=== PATIENT | female | born 1960 | race Caucasian/White ===

== ENCOUNTER → 2018-11-02 | Outpatient (CLI) | payer OTHER ==
--- NOTE | 2018-11-06 10:04 | MM ---
Reason for exam: screening (asymptomatic). Last mammogram was performed 1 year and 2 months ago. History: Patient is postmenopausal and has history of other cancer at age 39. Breast lifts, 2014. Physical Findings: A clinical breast exam by your physician is recommended on an annual basis and results should be correlated with mammographic findings. MG Screening Mammo w CAD Bilateral CC and MLO view(s) were taken. Prior study comparison: August 24, 2017, mammogram, performed at [facility]. July 08, 2016, mammogram, performed at [facility]. July 03, 2015, bilateral MG screening mammo w CAD. January 17, 2014, bilateral MG screening mammo w CAD. No suspicious abnormality. No significant changes when compared with prior studies. ASSESSMENT: Negative, BI-RAD 1 RECOMMENDATION: Routine screening mammogram of both breasts in 1 year.
== END ==
LOC: RADMAMWWP 13:06
PROVIDERS: ATTEND Family Medicine
DX: Z12.31 Encounter for screening mammogram for malignant neoplasm of breast (principal)
CPT/HCPCS: 77067

== ENCOUNTER → 2020-07-10 | Outpatient (CLI) | payer OTHER ==
[2020-07-10 08:54] LABS: Basophils % (A) 1 %; Eosinophils # (A) 0.1 k/uL (0-0.7); Eosinophils % (A) 3 %; HCT 40.8 % (34.0-46.0); HGB 13.5 gm/dL (11.4-16.0); Lymphocytes # (A) 0.9 k/uL (1.0-4.8); Lymphocytes % (A) 26 %; MCH 31.3 pg (25.0-35.0); MCHC 33.1 g/dL (31.0-37.0); MCV 94.7 fL (80.0-100.0); Mean Platelet Volume 7.7; Monocytes # (A) 0.3 k/uL (0-1.0); Monocytes % (A) 8 %; Neutrophils % (A) 61 %; Platelet Count 242 k/uL (150-450); RBC 4.31 m/uL (3.80-5.40); RDW 12.7 % (11.5-15.5); WBC 3.3 k/uL (3.8-10.6)
[2020-07-10 08:55] LABS: Appearance,Urine Clear (Clear); Bilirubin,Urine Negative (Negative); Blood,Urine Negative (Negative); Color,Urine Yellow; Glucose,Urine (UA) Negative (Negative); Ketones,Urine Negative (Negative); Leukocyte Esterase,Urine Negative (Negative); Nitrite,Urine Negative (Negative); PH, Urine 7.5 (5.0-8.0); Protein,Urine Negative (Negative); Specific Gravity,Urine 1.014 (1.001-1.035); Urobilinogen,Urine <2.0 mg/dL (<2.0)
[2020-07-10 12:21] LABS: Erythrocyte Sedimentation Rate 11 mm/hr (0-20)
[2020-07-10 16:14] LABS: Hemoglobin A1C 5.6 % (4.0-6.0)
[2020-07-10 18:46] LABS: African American GFR (CKD) 109.1 (60.0-200.0); Albumin 4.2 g/dL (3.80-4.90); Anion Gap 7.6 mmol/L (4.00-12.00); BUN/Creat Ratio 24.29 Ratio (12.00-20.00); C Reactive Protein, High Sens 1.22 mg/L (0.000-3.000); Calcium 9.5 mg/dL (8.7-10.3); Carbon Dioxide 28.4 mmol/L (21.6-31.8); Chol/HDL Ratio 2.22; Globulin 2.1 g/dL (1.6-3.3); LDL Cholesterol,Calculated 105.6 mg/dL (0.0-131.0); Non-African American GFR(CKD) 94.2 (60.0-200.0); Potassium 4.2 mmol/L (3.5-5.5); Total Bilirubin 0.4 mg/dL (0.2-1.2); Total Protein 6.3 g/dL (6.2-8.2); VLDL Calculation 11.4 mg/dL (5.00-40.00)
== END | disposition home or self-care (01) ==
LOC: LABWHC1 08:13
PROVIDERS: ATTEND Family Medicine
DX: E78.2 Mixed hyperlipidemia (principal); E53.8 Deficiency of other specified B group vitamins; E55.9 Vitamin D deficiency, unspecified; Z13.228 Encounter for screening for other metabolic disorders; Z82.49 Family history of ischemic heart disease and other diseases of the circulatory system
CPT/HCPCS: 36415; 80053; 80061; 81003; 82306; 82550; 82607; 83036; 83090; 84443; 85025; 85652; 86141

== ENCOUNTER → 2020-09-04 | Outpatient (CLI) | payer OTHER ==
--- NOTE | 2020-09-08 13:32 | MM ---
Reason for exam: screening (asymptomatic). Last mammogram was performed 1 year and 10 months ago. History: Patient is postmenopausal and has history of other cancer at age 39. Breast lifts, 2014. Physical Findings: A clinical breast exam by your physician is recommended on an annual basis and results should be correlated with mammographic findings. MG Screening Mammo w CAD Bilateral CC and MLO view(s) were taken. Prior study comparison: November 02, 2018, bilateral MG screening mammo w CAD. August 24, 2017, mammogram, performed at [facility]. The breast tissue is heterogeneously dense. This may lower the sensitivity of mammography. Dense tissues are present anteriorly on a background of scattered densities. No significant changes when compared with prior studies. ASSESSMENT: Negative, BI-RAD 1 RECOMMENDATION: Routine screening mammogram of both breasts in 1 year.
== END | disposition home or self-care (01) ==
LOC: RADMAMWWP 11:08
PROVIDERS: ATTEND Family Medicine
DX: Z12.31 Encounter for screening mammogram for malignant neoplasm of breast (principal)
CPT/HCPCS: 77067

== ENCOUNTER 2021-02-21 00:19 | Emergency (ER) | payer OTHER ==
[2021-02-21 00:32] VITALS: RESP 18
[2021-02-21] MEDS ORDERED: SODIUM CHLORIDE 0.9% 1,000 ML IV STA (00:43)
[2021-02-21 01:00] LABS: Glucose,Whole Blood 113 mg/dL (75-99)
[2021-02-21 01:06] LABS: Appearance,Urine Clear (Clear); Basophils % (A) 1 %; Bilirubin,Urine Negative (Negative); Blood,Urine Negative (Negative); Color,Urine Colorless; Eosinophils # (A) 0.1 k/uL (0-0.7); Eosinophils % (A) 2 %; Glucose,Urine (UA) Negative (Negative); HCT 39.8 % (34.0-46.0); HGB 13.4 gm/dL (11.4-16.0); Ketones,Urine Negative (Negative); Leukocyte Esterase,Urine Negative (Negative); Lymphocytes # (A) 1.3 k/uL (1.0-4.8); Lymphocytes % (A) 22 %; MCH 32.3 pg (25.0-35.0); MCHC 33.7 g/dL (31.0-37.0); MCV 95.6 fL (80.0-100.0); Mean Platelet Volume 8.2; Monocytes # (A) 0.3 k/uL (0-1.0); Monocytes % (A) 6 %; Neutrophils # (A) 4.1 k/uL (1.3-7.7); Neutrophils % (A) 68 %; Nitrite,Urine Negative (Negative); Platelet Count 235 k/uL (150-450); Protein,Urine Negative (Negative); RBC 4.17 m/uL (3.80-5.40); RDW 12.9 % (11.5-15.5); Specific Gravity,Urine 1.006 (1.001-1.035); Urobilinogen,Urine <2.0 mg/dL (<2.0)
[2021-02-21 01:15] LABS: ALT 19 U/L (4-34); AST 27 U/L (14-36); African American GFR (CKD) >90 (>60 ml/min/1.73 sqM); Albumin 4.3 g/dL (3.5-5.0); Alkaline Phosphatase 104 U/L (38-126); Anion Gap 5 mmol/L; Blood Urea Nitrogen 17 mg/dL (7-17); Calcium 9.2 mg/dL (8.4-10.2); Carbon Dioxide 26 mmol/L (22-30); Chloride 106 mmol/L (98-107); Glucose 112 mg/dL (74-99); INR 0.9 (<1.2); Non-African American GFR(CKD) >90 (>60 ml/min/1.73 sqM); Partial Thromboplastin Time 23.4 sec (22.0-30.0); Potassium 3.9 mmol/L (3.5-5.1); Prothrombin Time 9.8 sec (9.0-12.0); Sodium 137 mmol/L (137-145); Total Bilirubin 0.2 mg/dL (0.2-1.3); Total Protein 6.7 g/dL (6.3-8.2)
--- NOTE | 2021-02-21 01:31 | XR ---
EXAMINATION TYPE: XR chest 2V DATE OF EXAM: 02/21/2021 COMPARISON: NONE HISTORY: Chest pain TECHNIQUE: 2 views FINDINGS: Heart and mediastinum are normal. Lungs are clear. Diaphragm is normal. Bony thorax is inta ct. IMPRESSION: Normal chest.
--- NOTE | 2021-02-21 01:37 | ED ---
General Adult HPI - General Chief complaint: Nausea/Vomiting/Diarrhea Stated complaint: Heart pounding, nausea, shaky Time Seen by Provider: 02/21/21 00:39 Source: patient, RN notes reviewed Mode of arrival: ambulatory Limitations: no limitations - History of Present Illness Initial comments: Patient is a 60-year-old female that presents to the emergency department complaining of not feeling well after being out in the sun all day. She notes that she got up early did yardwork with her drink minimal water. She noted that she then met up with her daughter for lunch and of fair where she drank 1-2 bottles of water and several sprites. She notes that she was not feeling well while being on the sun drank some fluids and felt better at the time. She notes that when she got home she had several bottles of water and still did not feel well. This is when she came into the emergency room to get evaluated. She notes that she does have a history of hypoglycemia. She denied any cardiac history. She notes that she felt like her heart was pounding really hard during the time that she was not feeling well while outside in the sun. She was otherwise a well-appearing 60-year-old female in no apparent distress or pain. She denied any shortness of breath headache nausea vomiting diarrhea constipation fever fatigue chills. - Related Data Allergies Allergy/AdvReac Type Severity Reaction Status Date / Time codeine Allergy Vomiting Verified 02/21/21 00:32 meperidine [From Demerol] Allergy Rash/Hives Verified 02/21/21 00:32 prochlorperazine Allergy Unknown Verified 02/21/21 00:32 [From Compazine] Review of Systems ROS Statement: Those systems with pertinent positive or pertinent negative responses have been documented in the HPI. ROS Other: All systems not noted in ROS Statement are negative. Past Medical History Past Medical History: Hyperlipidemia History of Any Multi-Drug Resistant Organisms: None Reported Past Surgical History: No Surgical Hx Reported Past Psychological History: No Psychological Hx Reported Smoking Status: Never smoker Past Alcohol Use History: Occasional Past Drug Use History: None Reported General Exam Limitations: no limitations General appearance: alert, in no apparent distress Head exam: Present: atraumatic, normocephalic, normal inspection Eye exam: Present: normal appearance, PERRL, EOMI. Absent: scleral icterus, conjunctival injection, periorbital swelling ENT exam: Present: normal exam, mucous membranes moist Neck exam: Present: normal inspection Respiratory exam: Present: normal lung sounds bilaterally. Absent: respiratory distress, wheezes, rales, rhonchi, stridor Cardiovascular Exam: Present: regular rate, normal rhythm, normal heart sounds. Absent: systolic murmur, diastolic murmur, rubs, gallop, clicks GI/Abdominal exam: Present: soft, normal bowel sounds. Absent: distended, tenderness, guarding, rebound, rigid Extremities exam: Present: normal inspection, full ROM, normal capillary refill. Absent: tenderness, pedal edema, joint swelling, calf tenderness Neurological exam: Present: alert, oriented X3 Psychiatric exam: Present: normal affect, normal mood Skin exam: Present: warm, dry, intact, normal color. Absent: rash Course Vital Signs 02/21/21 00:30 Temperature 98.5 F Pulse Rate 82 Respiratory 18 Rate Blood Pressure 157/59 O2 Sat by Pulse 99 Oximetry EKG Findings - EKG Comments: EKG Findings:: Ventricular rate 65 bpm, MN interval 170 ms, QRS duration 84 ms, QTC 428 ms, PRT axes 46/-44/52. Normal sinus rhythm, left axis deviation, anterior septal infarct age undetermined. Abnormal ECG. Medical Decision Making - Medical Decision Making 60-year-old female stating that she did not feel well all the sun today and that at home later that evening. Labs, EKG, nurse monitoring, 1 L normal saline, chest x-ray ordered. Labs unremarkable. Chest x-ray negative for any acute process. Given labs and negative imaging in normal EKG patient most likely has he is also shows dehydration. Case discussed with Dr. Armenta, patient can discharge home with follow-up primary care - Lab Data Result diagrams: 02/21/21 00:57 02/21/21 00:57 Lab Results 02/21/21 02/21/21 02/21/21 Range/Units 00:53 00:57 00:57 WBC 6.0 (3.8-10.6) k/uL RBC 4.17 (3.80-5.40) m/uL Hgb 13.4 (11.4-16.0) gm/dL Hct 39.8 (34.0-46.0) % MCV 95.6 (80.0-100.0) fL MCH 32.3 (25.0-35.0) pg MCHC 33.7 (31.0-37.0) g/dL RDW 12.9 (11.5-15.5) % Plt Count 235 (150-450) k/uL MPV 8.2 Neutrophils % 68 % Lymphocytes % 22 % Monocytes % 6 % Eosinophils % 2 % Basophils % 1 % Neutrophils # 4.1 (1.3-7.7) k/uL Lymphocytes # 1.3 (1.0-4.8) k/uL Monocytes # 0.3 (0-1.0) k/uL Eosinophils # 0.1 (0-0.7) k/uL Basophils # 0.0 (0-0.2) k/uL PT 9.8 (9.0-12.0) sec INR 0.9 (<1.2) APTT 23.4 (22.0-30.0) sec Sodium (137-145) mmol/L Potassium (3.5-5.1) mmol/L Chloride (98-107) mmol/L Carbon Dioxide (22-30) mmol/L Anion Gap mmol/L BUN (7-17) mg/dL Creatinine (0.52-1.04) mg/dL Est GFR (CKD-EPI)AfAm (>60 ml/min/1.73 sqM) Est GFR (CKD-EPI)NonAf (>60 ml/min/1.73 sqM) Glucose (74-99) mg/dL POC Glucose (mg/dL) 113 H (75-99) mg/dL POC Glu [employer] ID Gregory, Dona Calcium (8.4-10.2) mg/dL Magnesium (1.6-2.3) mg/dL Total Bilirubin (0.2-1.3) mg/dL AST (14-36) U/L ALT (4-34) U/L Alkaline Phosphatase (38-126) U/L Troponin I (0.000-0.034) ng/mL Total Protein (6.3-8.2) g/dL Albumin (3.5-5.0) g/dL Urine Color Urine Appearance (Clear) Urine pH (5.0-8.0) Ur Specific [place] (1.001-1.035) Urine Protein (Negative) Urine Glucose (UA) (Negative) Urine Ketones (Negative) Urine Blood (Negative) Urine Nitrite (Negative) Urine Bilirubin (Negative) Urine Urobilinogen (<2.0) mg/dL Ur Leukocyte Esterase (Negative) 02/21/21 02/21/21 02/21/21 Range/Units 00:57 00:57 00:57 WBC (3.8-10.6) k/uL RBC (3.80-5.40) m/uL Hgb (11.4-16.0) gm/dL Hct (34.0-46.0) % MCV (80.0-100.0) fL MCH (25.0-35.0) pg MCHC (31.0-37.0) g/dL RDW (11.5-15.5) % Plt Count (150-450) k/uL MPV Neutrophils % % Lymphocytes % % Monocytes % % Eosinophils % % Basophils % % Neutrophils # (1.3-7.7) k/uL Lymphocytes # (1.0-4.8) k/uL Monocytes # (0-1.0) k/uL Eosinophils # (0-0.7) k/uL Basophils # (0-0.2) k/uL PT (9.0-12.0) sec INR (<1.2) APTT (22.0-30.0) sec Sodium 137 (137-145) mmol/L Potassium 3.9 (3.5-5.1) mmol/L Chloride 106 (98-107) mmol/L Carbon Dioxide 26 (22-30) mmol/L Anion Gap 5 mmol/L BUN 17 (7-17) mg/dL Creatinine 0.61 (0.52-1.04) mg/dL Est GFR (CKD-EPI)AfAm >90 (>60 ml/min/1.73 sqM) Est GFR (CKD-EPI)NonAf >90 (>60 ml/min/1.73 sqM) Glucose 112 H (74-99) mg/dL POC Glucose (mg/dL) (75-99) mg/dL POC Glu [employer] ID Calcium 9.2 (8.4-10.2) mg/dL Magnesium 2.0 (1.6-2.3) mg/dL Total Bilirubin 0.2 (0.2-1.3) mg/dL AST 27 (14-36) U/L ALT 19 (4-34) U/L Alkaline Phosphatase 104 (38-126) U/L Troponin I <0.012 (0.000-0.034) ng/mL Total Protein 6.7 (6.3-8.2) g/dL Albumin 4.3 (3.5-5.0) g/dL Urine Color Colorless Urine Appearance Clear (Clear) Urine pH 7.0 (5.0-8.0) Ur Specific [place] 1.006 (1.001-1.035) Urine Protein Negative (Negative) Urine Glucose (UA) Negative (Negative) Urine Ketones Negative (Negative) Urine Blood Negative (Negative) Urine Nitrite Negative (Negative) Urine Bilirubin Negative (Negative) Urine Urobilinogen <2.0 (<2.0) mg/dL Ur Leukocyte Esterase Negative (Negative) - EKG Data -: EKG Interpreted by Ct EKG shows normal: sinus rhythm Rate: normal EKG Comments: Ventricular rate 65 bpm, MN interval 170 ms, QRS duration 84 ms, QTC 428 ms, PRT axes 46/-44/52. Normal sinus rhythm, left axis deviation, anterior septal infarct age undetermined. Abnormal ECG. - Radiology Data Radiology results: report reviewed, image reviewed Chest x-ray: Normal chest. Disposition Clinical Impression: Dehydration, Heat exhaustion Disposition: HOME SELF-CARE Condition: Stable Instructions (If sedation given, give patient instructions): Dehydration (ED) Additional Instructions: Please return to the Emergency Department if symptoms worsen or any other concerns. Follow-up with primary care in the next 1-2 days. Increase oral fluids, should drank approximately 1 gallon per day. Caffeine causes her to urinate increasing dehydration. Get plenty or rest. Is patient prescribed a controlled substance at d/c from ED?: No Referrals: Deepika Ag MD [Primary Care Provider] - 1-2 days Time of Disposition: 01:48
[2021-02-21 02:03] VITALS: BP 136/76; PULSE 58; TEMP 98
== END 2021-02-21 02:00 | disposition home or self-care (01) ==
LOC: EC 00:19
DX: E86.0 Dehydration (principal); T67.5XXA Heat exhaustion, unspecified, initial encounter; Z88.5 Allergy status to narcotic agent; Z88.8 Allergy status to other drugs, medicaments and biological substances
CPT/HCPCS: 36415; 71046; 80053; 81003; 83735; 84484; 85025; 85610; 85730; 93005; 96360; 99284

== ENCOUNTER → 2021-09-17 | Outpatient (CLI) | payer OTHER ==
--- NOTE | 2021-09-20 09:16 | MM ---
Reason for exam: screening (asymptomatic). Last mammogram was performed 1 year ago. History: Patient is postmenopausal and has history of other cancer at age 39. Breast lifts, 2014. Physical Findings: A clinical breast exam by your physician is recommended on an annual basis and results should be correlated with mammographic findings. MG Screening Mammo w CAD Bilateral CC and MLO view(s) were taken. Prior study comparison: September 04, 2020, bilateral MG screening mammo w CAD. November 02, 2018, bilateral MG screening mammo w CAD. There are scattered fibroglandular densities. There are benign appearing round calcifications bilaterally. There is no discrete abnormality. ASSESSMENT: Benign, BI-RAD 2 RECOMMENDATION: Routine screening mammogram of both breasts in 1 year.
== END | disposition home or self-care (01) ==
LOC: RADMAMWWP 12:54
PROVIDERS: ATTEND Family Medicine
DX: Z12.31 Encounter for screening mammogram for malignant neoplasm of breast (principal); Z78.0 Asymptomatic menopausal state
CPT/HCPCS: 77067

== ENCOUNTER 2022-08-16 09:07 | Day surgery (SDC) | payer OTHER ==
[2022-08-11 13:12] VITALS: BMI 28.1
[~2022-08-16 09:07] MED LIST: LACTATED RINGERS 1,000 ML IV SCH
[2022-08-16 09:33] VITALS: TEMP 97.6
[2022-08-16 09:46] LABS: Glucose,Whole Blood 96 mg/dL (70-110)
[2022-08-16] MEDS ORDERED: PROPOFOL 10 MG/ML 20 ML VIAL IV ONE (10:01)
--- NOTE | 2022-08-16 10:05 | P.GSHP ---
History of Present Illness H&P Date: 08/16/22 Chief Complaint: Colon cancer screening 61-year-old female here today for colonoscopy. Last colonoscopy 10-15 years ago. No bowel complaints. Family believes her mother may have had colon cancer in the past. Past Medical History Past Medical History: Cancer, Hyperlipidemia Additional Past Medical History / Comment(s): KIDNEY STONE. SKIN CANCER X 2 History of Any Multi-Drug Resistant Organisms: None Reported Past Surgical History: Hysterectomy, Orthopedic Surgery, Tubal Ligation Additional Past Surgical History / Comment(s): BILAT FOOT SX, KIDNEY STONE REMOVED , COLONOSCOPY, SKIN CANCER REMOVED FROM CHEST AREA Past Anesthesia/Blood Transfusion Reactions: Postoperative Nausea & Vomiting (PONV) Smoking Status: Never smoker - Past Family History Mother Family Medical History: No Reported History Medications and Allergies Home Medications Medication Instructions Recorded Confirmed Type Levocetirizine Dihydrochloride 5 mg PO HS 08/11/22 08/11/22 History [Xyzal] Rosuvastatin Calcium 5 mg PO MOWEFR 08/11/22 08/11/22 History Allergies Allergy/AdvReac Type Severity Reaction Status Date / Time codeine Allergy Vomiting Verified 08/11/22 13:00 meperidine [From Demerol] Allergy Rash/Hives Verified 08/11/22 13:00 prochlorperazine Allergy CONVULSIONS Verified 08/16/22 09:30 [From Compazine] Surgical - Exam Vital Signs Temp Pulse Resp BP Pulse Ox 97.6 F 71 18 159/70 98 08/16/22 09:32 08/16/22 09:32 08/16/22 09:32 08/16/22 09:32 08/16/22 09:32 Physical exam: General: Well-developed, well-nourished HEENT: Normocephalic, sclerae nonicteric Abdomen: Nontender, nondistended Extremities: No edema Neuro: Alert and oriented Assessment and Plan (1) Colon cancer screening Narrative/Plan: Will proceed with colonoscopy at this time. Current Visit: Yes Status: Acute Code(s): Z12.11 - ENCOUNTER FOR SCREENING FOR MALIGNANT NEOPLASM OF COLON SNOMED Code(s): 435290861
--- NOTE | 2022-08-16 10:20 | P.PCN ---
Date of Procedure: 08/16/22 Procedure(s) Performed: PREOPERATIVE DIAGNOSIS: Colon cancer screening POSTOPERATIVE DIAGNOSIS: Normal exam PROCEDURE: Colonoscopy ANESTHESIA: MAC SURGEON: Galen Mariano M.D. SPECIMENS: None ENDOSCOPIC PROCEDURE: The patient was placed on the endoscopy table in the left decubitus position. The Olympus colonoscope was inserted into the anus and passed under direct visualization to the base of the cecum. The appendiceal orifice was visualized. From that point the scope was slowly withdrawn inspecti ng all surfaces carefully. There were no neoplastic inflammatory or polypoid lesions throughout the cecum, ascending, transverse, descending, sigmoid and rectum. There was no visible diverticulosis noted. Digital rectal examination was normal. The patient was taken to the recovery room in stable condition per anesthesia guidelines. RECOMMENDATIONS: Resume diet. Repeat colonoscopy in 5-10 years
[2022-08-16 10:25] VITALS: RESP 16
[2022-08-16 11:04] VITALS: BP 130/75; PULSE 54
== END 2022-08-16 11:33 | disposition home or self-care (01) ==
LOC: ORWHC2ENDO 09:07
PROVIDERS: ATTEND Surgery
DX: Z12.11 Encounter for screening for malignant neoplasm of colon (principal); E78.5 Hyperlipidemia, unspecified; Z87.442 Personal history of urinary calculi; Z85.828 Personal history of other malignant neoplasm of skin; Z98.890 Other specified postprocedural states; Z79.811 Long term (current) use of aromatase inhibitors; Z79.02 Long term (current) use of antithrombotics/antiplatelets; Z88.5 Allergy status to narcotic agent; Z88.8 Allergy status to other drugs, medicaments and biological substances; Z98.51 Tubal ligation status
CPT/HCPCS: 45378; J2704

== ENCOUNTER → 2022-10-10 | Outpatient (CLI) | payer OTHER ==
--- NOTE | 2022-10-11 08:30 | MM ---
Reason for Exam: Screening (asymptomatic). Last mammogram was performed 1 year(s) and 1 month(s) ago. Patient History: Menarche at age 11. First Full-Term at age 22. Hysterectomy at age 40. Postmenopausal. Other cancer, age 39. Risk Values: [place] 5 year model risk: 1.4%. NCI Lifetime model risk: 6.0%. Prior Study Comparison: 11/02/2018 Bilateral Screening Mammogram, [facility]. 09/04/2020 Bilateral Screening Mammogram, [facility]. 09/17/2021 Bilateral Screening Mammogram, [facility]. Tissue Density: There are scattered fibroglandular densities. Findings: Analyzed By CAD. There is no suspicious group of microcalcifications or new suspicious mass in either breast. Benign-appearing round calcifications bilaterally. Overall Assessment: Benign, BI-RAD 2 Management: Screening Mammogram of both breasts in 1 year. A clinical breast exam by your physician is recommended on an annual basis and results should be correlated with mammographic findings. Electronically signed and approved by: Yannick Hadley D.O.
== END | disposition home or self-care (01) ==
LOC: RADMAMWWP 11:10
PROVIDERS: ATTEND Family Medicine
DX: Z12.31 Encounter for screening mammogram for malignant neoplasm of breast (principal); Z78.0 Asymptomatic menopausal state
CPT/HCPCS: 77067

== ENCOUNTER → 2023-07-06 | Outpatient (CLI) | payer OTHER ==
--- NOTE | 2023-07-06 16:57 | US ---
EXAMINATION TYPE: US transvaginal DATE OF EXAM: 07/06/2023 COMPARISON: NONE CLINICAL INDICATION: Female, 62 years old with history of R19.00 INTRA-ABD AND PELVIC SWELLING W/MASS ; physician felt "sac" at end of vag cuff near bladder, abnormal pap smear TECHNIQUE: Transvaginal (TV) ultrasound of the pelvis. Transvaginal sonographic images were medical ly necessary to better assess the following anatomy: Ovaries Date of LMP: 1999 (hysterectomy) EXAM MEASUREMENTS: Uterus: Surgically absent Endometrial Stripe: Surgically absent Right Ovary: Not seen apparently obscured by bowel Left Ovary: Not seen apparently obscured by bowel 1. Uterus: Surgically absent 2. Endometrium: Surgically absent 3. Right Ovary: Obscured by overlying bowel gas 4. Left Ovary: Obscured by overlying bowel gas 5. Bilateral Adnexa: Obscured by overlying bowel gas 6. Posterior cul-de-sac: wnl A 0.2x0.2x0.1cm echogenic focus noted in the region of the vaginal cuff, 0.7x0.6x0.8cm cystic area no zahraa at end of vaginal cuff, may correspond to "fingernail size sac-like area" palpated by physician Exam limited by bowel gas IMPRESSION: 1. Status post hysterectomy. 2. Small chronic focus in the region of the vaginal cuff, may represent calcification. A 0.8 cm cyst ic area at the end of the vaginal cuff, may correspond to the reported physical exam findings. 3. Ovaries/adnexa obscured by bowel gas.
== END | disposition home or self-care (01) ==
LOC: RADUSWWP 15:57
PROVIDERS: ATTEND Family Medicine
DX: N89.8 Other specified noninflammatory disorders of vagina (principal); R14.0 Abdominal distension (gaseous); Z90.710 Acquired absence of both cervix and uterus
CPT/HCPCS: 76830

== ENCOUNTER 2023-07-28 08:07 | Observation (INO) | payer OTHER ==
[2023-07-28] MEDS ORDERED: SODIUM CHLORIDE 0.9% 1,000 ML IV ONE (08:36)
--- NOTE | 2023-07-28 08:40 | ED ---
Abdominal Pain HPI - General Chief Complaint: Abdominal Pain Stated Complaint: Cdiff Time Seen by Provider: 07/28/23 08:36 Source: patient, RN notes reviewed Mode of arrival: ambulatory Limitations: no limitations - History of Present Illness Initial Comments: 62-year-old female presents emergency Department with chief complaint of diarrhea. Patient was positive for C. diff patient was on prior Cipro and Flagyl and was placed on vancomycin. Patient states that she's lost over 10 pounds. Patient states that her PCP sent her to the emergency department to be admitted for dehydration and C. diff. Patient states she was on Cipro and Flagyl secondary to colonic infection. - Related Data Home Medications Medication Instructions Recorded Confirmed Levocetirizine Dihydrochloride 5 mg PO HS 08/11/22 07/28/23 [Xyzal] Rosuvastatin Calcium 5 mg PO MOWEFR 08/11/22 07/28/23 Ondansetron Odt [Zofran Odt] 4 mg PO Q4H PRN 07/28/23 07/28/23 Vancomycin Oral Solution 250 mg PO Q6HR 07/28/23 07/28/23 [Vancomycin HCl Oral Soln] Allergies Allergy/AdvReac Type Severity Reaction Status Date / Time meperidine [From Demerol] Allergy Rash/Hives Verified 07/28/23 11:51 sulfamethoxazole Allergy Rash/Hives Verified 07/28/23 11:51 [From Bactrim] trimethoprim [From Bactrim] Allergy Rash/Hives Verified 07/28/23 11:51 codeine AdvReac Nausea & Verified 07/28/23 11:51 Vomiting prochlorperazine AdvReac CONVULSIONS Verified 07/28/23 11:51 [From Compazine] Review of Systems ROS Statement: Those systems with pertinent positive or pertinent negative responses have been documented in the HPI. ROS Other: All systems not noted in ROS Statement are negative. Past Medical History Past Medical History: Cancer, Hyperlipidemia Additional Past Medical History / Comment(s): KIDNEY STONE. SKIN CANCER X 2 History of Any Multi-Drug Resistant Organisms: None Reported Past Surgical History: Hysterectomy, Orthopedic Surgery, Tubal Ligation Additional Past Surgical History / Comment(s): BILAT FOOT SX, KIDNEY STONE REMOVED , COLONOSCOPY, SKIN CANCER REMOVED FROM CHEST AREA Past Anesthesia/Blood Transfusion Reactions: Postoperative Nausea & Vomiting (PONV) Past Psychological History: No Psychological Hx Reported Smoking Status: Never smoker - Past Family History Mother Family Medical History: No Reported History General Exam Limitations: no limitations General appearance: alert, in no apparent distress Head exam: Present: atraumatic, normocephalic, normal inspection Neck exam: Present: normal inspection, full ROM. Absent: tenderness, meningismus, lymphadenopathy Respiratory exam: Present: normal lung sounds bilaterally. Absent: respiratory distress, wheezes, rales, rhonchi, stridor Cardiovascular Exam: Present: regular rate, normal rhythm, normal heart sounds. Absent: systolic murmur, diastolic murmur, rubs, gallop, clicks GI/Abdominal exam: Present: soft, tenderness, normal bowel sounds. Absent: distended, guarding, rebound, rigid Course Vital Signs 07/28/23 07/28/23 08:32 10:46 Temperature 98.8 F 98.2 F Pulse Rate 83 65 Respiratory 16 18 Rate Blood Pressure 119/65 157/73 O2 Sat by Pulse 98 100 Oximetry Medical Decision Making - Medical Decision Making Was pt. sent in by a medical professional or institution (, PA, PARTITION ASSEMBLY MACHINE OPERATOR, urgent care, hospital, or jail...) When possible be specific @ -PCP sent Did you speak to anyone other than the patient for history (EMS, parent, family, police, friend...)? What history was obtained from this source @ -No Did you review nursing and triage notes (agree or disagree)? Why? @ -I reviewed and agree with nursing and triage notes Were old charts reviewed (outside hosp., previous admission, EMS record, old EKG, old radiological studies, urgent care reports/EKG's, jail records)? Report findings @ -No old charts were reviewed Differential Diagnosis (chest pain, altered mental status, abdominal pain women, abdominal pain men, vaginal bleeding, weakness, fever, dyspnea, syncope, headache, dizziness, GI bleed, back pain, seizure, CVA, palpatations, mental health, musculoskeletal)? @ -Differential Abdominal Pain Women: Appendicitis, Cholecystitis, diverticulosis, ischemic bowel, pancreatitis, hepatitis, UTI, gastroenteritis, AAA, incarcerated hernia, bowel obstruction, constipation, inflammatory bowel, hepatitis, peptic ulcer disease, splenic infarction, perforated viscus, vulvitis, ovarian torsion, PID, kidney stone, placenta abruption, this is not meant to be an all-inclusive list EKG interpreted by me (3pts min.). @ -None X-rays interpreted by me (1pt min.). @ -None done CT interpreted by me (1pt min.). @ -None done U/S interpreted by me (1pt. min.). @ -None done What testing was considered but not performed or refused? (CT, X-rays, U/S, labs)? Why? @ -None What meds were considered but not given or refused? Why? @ -None Did you discuss the management of the patient with other professionals (professionals i.e. , PA, PARTITION ASSEMBLY MACHINE OPERATOR, lab, RT, psych nurse, manager social media, structural metal fabricator apprentice, teacher, navigation officer, director case)? Give summary @ -Dr. Lora for admission Was smoking cessation discussed for >3mins.? @ -No Was critical care preformed (if so, how long)? @ -No Were there social determinants of health that impacted care today? How? (Homelessness, low income, unemployed, alcoholism, drug addiction, transportation, low edu. Level, literacy, decrease access to med. care, prison, rehab)? @ -No Was there de-escalation of care discussed even if they declined (Discuss DNR or withdrawal of care, Hospice)? DNR status @ -No What co-morbidities impacted this encounter? (DM, HTN, Smoking, COPD, CAD, Cancer, CVA, ARF, Chemo, Hep., AIDS, mental health diagnosis, sleep apnea, morbid obesity)? @ -None Was patient admitted / discharged? Hospital course, mention meds given and route, prescriptions, significant lab abnormalities, going to OR and other per tinent info. @ -Admitted patient presented for dehydration, C. diff. Patient has been on prior Flagyl, now vancomycin with increasing symptoms. Patient was sent in for admission and infectious disease consult Undiagnosed new problem with uncertain prognosis? @ -No Drug Therapy requiring intensive monitoring for toxicity (Heparin, Nitro, Insulin, Cardizem)? @ -No Were any procedures done? @ -No Diagnosis/symptom? @ -C. diff, dehydration Acute, or Chronic, or Acute on Chronic? @ -Acute Uncomplicated (without systemic symptoms) or Complicated (systemic symptoms)? @ -Uncomplicated Side effects of treatment? @ -No Exacerbation, Progression, or Severe Exacerbation? @ -No Poses a threat to life or bodily function? How? (Chest pain, USA, ID, pneumonia, PE, COPD, DKA, ARF, appy, cholecystitis, CVA, Diverticulitis, Homicidal, Suicidal, threat to staff... and all critical care pts) @ -No - Lab Data Result diagrams: 07/28/23 08:49 07/28/23 08:49 Lab Results 07/28/23 07/28/23 07/28/23 Range/Units 08:49 08:49 08:49 WBC 7.4 (3.8-10.6) k/uL RBC 4.52 (3.80-5.40) m/uL Hgb 14.3 (11.4-16.0) gm/dL Hct 41.9 (34.0-46.0) % MCV 92.6 (80.0-100.0) fL MCH 31.6 (25.0-35.0) pg MCHC 34.2 (31.0-37.0) g/dL RDW 12.8 (11.5-15.5) % Plt Count 239 (150-450) k/uL MPV 9.5 Neutrophils % 81 % Lymphocytes % 9 % Monocytes % 8 % Eosinophils % 0 % Basophils % 0 % Neutrophils # 6.0 (1.3-7.7) k/uL Lymphocytes # 0.6 L (1.0-4.8) k/uL Monocytes # 0.6 (0-1.0) k/uL Eosinophils # 0.0 (0-0.7) k/uL Basophils # 0.0 (0-0.2) k/uL Sodium 139 (137-145) mmol/L Potassium 3.4 L (3.5-5.1) mmol/L Chloride 103 (98-107) mmol/L Carbon Dioxide 24 (22-30) mmol/L Anion Gap 12 mmol/L BUN 11 (7-17) mg/dL Creatinine 0.60 (0.52-1.04) mg/dL Est GFR (CKD-EPI)AfAm >90 (>60 ml/min/1.73 sqM) Est GFR (CKD-EPI)NonAf >90 (>60 ml/min/1.73 sqM) Glucose 109 H (74-99) mg/dL Plasma Lactic Acid Vinh 1.9 (0.7-2.0) mmol/L Calcium 9.6 (8.4-10.2) mg/dL Magnesium 1.8 (1.6-2.3) mg/dL Total Bilirubin 0.4 (0.2-1.3) mg/dL AST 22 (14-36) U/L ALT 20 (4-34) U/L Alkaline Phosphatase 64 (38-126) U/L Total Protein 6.7 (6.3-8.2) g/dL Albumin 4.0 (3.5-5.0) g/dL Lipase 95 (23-300) U/L Disposition Clinical Impression: C. difficile diarrhea, Dehydration Disposition: ADMITTED IP TO THIS HOSP Condition: Fair Time of Disposition: 10:41
[2023-07-28 09:21] LABS: Basophils % (A) 0 %; Eosinophils % (A) 0 %; HCT 41.9 % (34.0-46.0); HGB 14.3 gm/dL (11.4-16.0); Lymphocytes # (A) 0.6 k/uL (1.0-4.8); Lymphocytes % (A) 9 %; MCH 31.6 pg (25.0-35.0); MCHC 34.2 g/dL (31.0-37.0); MCV 92.6 fL (80.0-100.0); Mean Platelet Volume 9.5; Monocytes # (A) 0.6 k/uL (0-1.0); Monocytes % (A) 8 %; Neutrophils % (A) 81 %; Platelet Count 239 k/uL (150-450); RBC 4.52 m/uL (3.80-5.40); RDW 12.8 % (11.5-15.5); WBC 7.4 k/uL (3.8-10.6)
[2023-07-28 09:31] LABS: ALT 20 U/L (4-34); AST 22 U/L (14-36); African American GFR (CKD) >90 (>60 ml/min/1.73 sqM); Alkaline Phosphatase 64 U/L (38-126); Anion Gap 12 mmol/L; Blood Urea Nitrogen 11 mg/dL (7-17); Calcium 9.6 mg/dL (8.4-10.2); Carbon Dioxide 24 mmol/L (22-30); Chloride 103 mmol/L (98-107); Glucose 109 mg/dL (74-99); Lipase 95 U/L (23-300); Magnesium 1.8 mg/dL (1.6-2.3); Non-African American GFR(CKD) >90 (>60 ml/min/1.73 sqM); Potassium 3.4 mmol/L (3.5-5.1); Sodium 139 mmol/L (137-145); Total Bilirubin 0.4 mg/dL (0.2-1.3); Total Protein 6.7 g/dL (6.3-8.2)
[2023-07-28] MEDS ORDERED: NALOXONE 0.4 MG/ML 1 ML VIAL IV PRN (10:51)
[2023-07-28] MEDS ORDERED: ONDANSETRON 4 MG/2 ML VIAL IVP PRN (11:16)
[2023-07-28] MEDS ORDERED: ACETAMINOPHEN TAB 325 MG TAB PO PRN (11:16)
[2023-07-28] MEDS: SODIUM CHLORIDE 0.9% 1,000 ML IV SCH (11:35)
[2023-07-28] MEDS: VANCOMYCIN 125 MG CAPSULE PO SCH ×3 (13:03→20:50)
[2023-07-28] MEDS ORDERED: ATORVASTATIN 10 MG TAB PO SCH (14:15)
[2023-07-28] MEDS: LORATADINE 10 MG TAB PO SCH (20:50)
--- NOTE | 2023-07-28 22:51 | P.CONS ---
History of Present Illness - Reason for Consult Consult date: 07/28/23 C. difficile Requesting physician: Andres Tello - Chief Complaint Diarrhea x few days - History of Present Illness Patient is a 62-year-old female who apparently recently during her pelvic exam by her PCP noticed to have a vaginal cyst concerning for infected c yst and the patient has been treated with a 2-week course of oral Cipro and Flagyl the patient completed on 07/13/2023 about a week later patient started having diarrhea and the patient diarrhea continue to get worse patient mention she have multiple episodes of loose stools per day which is watery denies having any blood or mucus in the stool has been complaining of crampy lower abdominal pain which is moderate to severe intensity did have some nausea but no vomiting and decreased oral intake patient denies high-grade fever and no fever have recorded by presentation to the hospital patient was not tachycardic hypotensive or hypoxic patient did have white count of 7.4 creatinine 0.60 liver exams are normal patient did have a stool for C. difficile done by her PCP which came back positive and the patient was advised to go to the hospital for admission IV fluid and antibiotic therapy patient was started on oral vancomycin infectious disease was consulted for further management of antibiotic therapy patient complaining of significant weakness decreased appetite and multiple pound weight loss since her diarrhea has started Review of Systems Positive point and negatives has been mentioned in the HPI, complete review of systems was performed and all other systems are negative Past Medical History Past Medical History: Cancer, Hyperlipidemia Additional Past Medical History / Comment(s): KIDNEY STONE. SKIN CANCER X 2 History of Any Multi-Drug Resistant Organisms: None Reported Past Surgical History: Hysterectomy, Orthopedic Surgery, Tubal Ligation Additional Past Surgical History / Comment(s): BILAT FOOT SX, KIDNEY STONE REMOVED , COLONOSCOPY, SKIN CANCER REMOVED FROM CHEST AREA Past Anesthesia/Blood Transfusion Reactions: Postoperative Nausea & Vomiting (PONV) Past Psychological History: No Psychological Hx Reported Smoking Status: Never smoker - Past Family History Mother Family Medical History: No Reported History Medications and Allergies Home Medications Medication Instructions Recorded Confirmed Type Levocetirizine Dihydrochloride 5 mg PO HS 08/11/22 07/28/23 History [Xyzal] Rosuvastatin Calcium 5 mg PO MOWEFR 08/11/22 07/28/23 History Ondansetron Odt [Zofran ODT] 4 mg PO Q4H PRN 07/28/23 07/28/23 History Vancomycin Oral Solution 250 mg PO Q6HR 07/28/23 07/28/23 History [Vancomycin HCl Oral Soln] Allergies Allergy/AdvReac Type Severity Reaction Status Date / Time meperidine [From Demerol] Allergy Rash/Hives Verified 07/28/23 11:51 sulfamethoxazole Allergy Rash/Hives Verified 07/28/23 11:51 [From Bactrim] trimethoprim [From Bactrim] Allergy Rash/Hives Verified 07/28/23 11:51 codeine AdvReac Nausea & Verified 07/28/23 11:51 Vomiting prochlorperazine AdvReac CONVULSIONS Verified 07/28/23 11:51 [From Compazine] Physical Exam Vitals: Vital Signs Temp Pulse Resp BP Pulse Ox 07/28/23 10:46 98.2 F 65 18 157/73 100 07/28/23 08:32 98.8 F 83 16 119/65 98 Intake and Output 07/27/23 07/28/23 07/28/23 22:59 06:59 14:59 Other: Weight 76.204 kg GENERAL DESCRIPTION: Middle-aged female lying in bed, no distress. No tachypnea or accessory muscle of respiration use. HEENT: Shows Pallor , no scleral icterus. Oral mucous membrane is dry. No pharyngeal erythema or thrush NECK: Trachea central, no thyromegaly. LUNGS: Unlabored breathing. Clear to auscultation anteriorly. No wheeze or crackle. HEART: S1, S2, regular rate and rhythm. No loud murmur ABDOMEN: Soft, mild lower abdominal tenderness EXTREMITIES: No edema of feet. SKIN: No rash, no masses palpable. NEUROLOGICAL: The patient is awake, alert, oriented x3, mood and affect normal. Results CBC & Chem 7: 07/30/23 06:02 07/30/23 06:02 Labs: Abnormal Lab Results - Last 24 Hours (Table) 07/28/23 07/28/23 Range/Units 08:49 08:49 Lymphocytes # 0.6 L (1.0-4.8) k/uL Potassium 3.4 L (3.5-5.1) mmol/L Glucose 109 H (74-99) mg/dL Assessment and Plan (1) C. difficile diarrhea Status: Acute Code(s): A04.72 - ENTEROCOLITIS D/T CLOSTRIDIUM DIFFICILE, NOT SPCF RECUR SNOMED Code(s): 2800428736064 Plan: 1patient was in the hospital with intractable diarrhea and this patient has been recently exposed to antibiotic in the form of oral Cipro and Flagyl for vaginal cyst now with intractable diarrhea secondary to C. difficile colitis 2-patient has been educated about her condition and how to prevent recurrent episode 3-vancomycin 125 mg p.o. every 6 hours will add Questran if any persistent diarrhea 4-advised to increase her probiotic and yogurt intake We will follow on clinical condition and cultures to further adjust medication if needed Thank you for this consultation we will follow the patient along with you Dictation was produced using [employer] dictation software. please excuse any grammatical, word or spelling errors. Time with Patient: Greater than 30
[2023-07-29] MEDS: SODIUM CHLORIDE 0.9% 1,000 ML IV SCH ×2 (01:58→21:25)
[2023-07-29] MEDS: VANCOMYCIN 125 MG CAPSULE PO SCH ×4 (08:52→21:24)
[2023-07-29] MEDS: PANTOPRAZOLE 40 MG/10 ML VIAL IV SCH (08:52)
[2023-07-29 09:19] LABS: Basophils # (A) 0.02 X 10*3/uL (0.00-0.10); Basophils % (A) 0.4 %; Eosinophils # (A) 0.07 X 10*3/uL (0.04-0.35); Eosinophils % (A) 1.5 %; HCT 35.8 % (37.2-46.3); HGB 11.9 g/dL (12.0-15.0); Lymphocytes # (A) 1.41 X 10*3/uL (0.90-5.00); Lymphocytes % (A) 31.1 %; MCH 31.2 pg (27.0-32.0); MCHC 33.2 g/dL (32.0-37.0); MCV 93.7 FL (80.0-97.0); Mean Platelet Volume 12.8 FL (9.5-12.2); Monocytes # (A) 0.72 X 10*3/uL (0.20-1.00); Monocytes % (A) 15.9 %; NRBC Per 100 WBC 0 X 10*3/uL (0.00-0.01); Neutrophils % (A) 50.7 %; Platelet Count 227 X 10*3/uL (140-440); RBC 3.82 X 10*6/uL (4.10-5.20); RDW 13.1 % (11.5-14.5); WBC 4.54 X 10*3/uL (4.50-10.00)
[2023-07-29 09:37] LABS: BUN/Creat Ratio 12.67 Ratio (12.00-20.00); Blood Urea Nitrogen 7.6 mg/dL (9.0-27.0); Calcium 8.7 mg/dL (8.7-10.3); Carbon Dioxide 24.3 mmol/L (21.6-31.8); Chloride 107 mmol/L (96-109); Glucose 97 mg/dL (70-110); Potassium 3.8 mmol/L (3.5-5.5); Sodium 141 mmol/L (135-145)
[2023-07-29] MEDS: LORATADINE 10 MG TAB PO SCH (21:25)
--- NOTE | 2023-07-29 23:37 | P.HPIM ---
History of Present Illness H&P Date: 07/28/23 Chief Complaint: Intractable diarrhea 62-year-old female who apparently recently during her pelvic exam by her PCP noticed to have a vaginal cyst concerning for infected cyst and the patient has been treated with a 2-week course of oral Cipro and Flagyl the patient completed on 07/13/2023 about a week later patient started having diarrhea and the patient diarrhea continue to get worse patient mention she have multiple episodes of loose stools per day which is watery denies having any blood or mucus in the stool has been complaining of crampy lower abdominal pain which is moderate to severe intensity did have some nausea but no vomiting and decreased oral intake patient denies high-grade fever and no fever have recorded by presentation to the hospital patient was not tachycardic hypotensive or hypoxic patient did have white count of 7.4 creatinine 0.60 liver exams are normal patient did have a stool for C. difficile done by her PCP which came back positive and the patient was advised to go to the hospital for admission IV fluid and antibiotic therapy patient was started on oral vancomycin Medical completed in the diffuse wheezes and 0.4, hemoglobin of 14.3, sodium 139, potassium 2.4, BUN/creatinine of 11/0.6 and platelet count of 109 Review of Systems REVIEW OF SYSTEMS: CONSTITUTIONAL: No fever, no malaise, no fatigue. HEENT: No recent visual problems or hearing problems. Denied any sore throat. CARDIOVASCULAR: No chest pain, orthopnea, PND, no palpitations, no syncope. PULMONARY: No shortness of breath, no cough, no hemoptysis. GASTROINTESTINAL: No diarrhea, no nausea, no vomiting, no abdominal pain. NEUROLOGICAL: No headaches, no weakness, no numbness. HEMATOLOGICAL: Denies any bleeding or petechiae. GENITOURINARY: Denies any burning micturition, frequency, or urgency. MUSCULOSKELETAL/RHEUMATOLOGICAL: Denies any joint pain, swelling, or any muscle pain. ENDOCRINE: Denies any polyuria or polydipsia. The rest of the 14-point review of systems is negative. Past Medical History Past Medical History: Cancer, Hyperlipidemia Additional Past Medical History / Comment(s): KIDNEY STONE. SKIN CANCER X 2 History of Any Multi-Drug Resistant Organisms: None Reported Past Surgical History: Hysterectomy, Orthopedic Surgery, Tubal Ligation Additional Past Surgical History / Comment(s): BILAT FOOT SX, KIDNEY STONE REMOVED , COLONOSCOPY, SKIN CANCER REMOVED FROM CHEST AREA Past Anesthesia/Blood Transfusion Reactions: Postoperative Nausea & Vomiting (PONV) Past Psychological History: No Psychological Hx Reported Smoking Status: Never smoker - Past Family History Mother Family Medical History: No Reported History Medications and Allergies Home Medications Medication Instructions Recorded Confirmed Type Levocetirizine Dihydrochloride 5 mg PO HS 08/11/22 07/28/23 History [Xyzal] Rosuvastatin Calcium 5 mg PO MOWEFR 08/11/22 07/28/23 History Ondansetron Odt [Zofran Odt] 4 mg PO Q4H PRN 07/28/23 07/28/23 History Vancomycin Oral Solution 250 mg PO Q6HR 07/28/23 07/28/23 History [Vancomycin HCl Oral Soln] Allergies Allergy/AdvReac Type Severity Reaction Status Date / Time meperidine [From Demerol] Allergy Rash/Hives Verified 07/28/23 11:51 sulfamethoxazole Allergy Rash/Hives Verified 07/28/23 11:51 [From Bactrim] trimethoprim [From Bactrim] Allergy Rash/Hives Verified 07/28/23 11:51 codeine AdvReac Nausea & Verified 07/28/23 11:51 Vomiting prochlorperazine AdvReac CONVULSIONS Verified 07/28/23 11:51 [From Compazine] Physical Exam Vitals: Vital Signs Temp Pulse Resp BP Pulse Ox 07/28/23 10:46 98.2 F 65 18 157/73 100 07/28/23 08:32 98.8 F 83 16 119/65 98 Intake and Output 07/27/23 07/28/23 07/28/23 22:59 06:59 14:59 Other: Weight 76.204 kg PHYSICAL EXAMINATION: GENERAL: The patient is alert and oriented x3, not in any acute distress. Well developed, well nourished. HEENT: Pupils are round and equally reacting to light. EOMI. No scleral icterus. No conjunctival pallor. Normocephalic, atraumatic. No pharyngeal erythema. No thyromegaly. CARDIOVASCULAR: S1 and S2 present. No murmurs, rubs, or gallops. PULMONARY: Chest is clear to auscultation, no wheezing or crackles. ABDOMEN: Soft, nontender, nondistended, normoactive bowel sounds. No palpable organomegaly. MUSCULOSKELETAL: No joint swelling or deformity. EXTREMITIES: No cyanosis, clubbing, or pedal edema. NEUROLOGICAL: Gross neurological examination did not reveal any focal deficits. SKIN: No rashes. Results CBC & Chem 7: 07/29/23 03:49 07/29/23 03:49 Labs: Abnormal Lab Results - Last 24 Hours (Table) 07/28/23 07/28/23 Range/Units 08:49 08:49 Lymphocytes # 0.6 L (1.0-4.8) k/uL Potassium 3.4 L (3.5-5.1) mmol/L Glucose 109 H (74-99) mg/dL Assessment and Plan Assessment: 1. Intractable diarrhea secondary to C. diff colitis --patient has been recently exposed to antibiotic in the form of oral Cipro and Flagyl for vaginal cyst now with intractable diarrhea secondary to C. difficile colitis - Patient has in place on oral vancomycin 125 mg every 6 hours -- Consult ID for further recommendations 2. Hypokalemia; documented in ED; monitor electrolytes and supplement as needed 3. Hyperlipidemia; Crestor 5 mg daily 4. Refill ALLERGIES; continue with xyzal 5 mg daily DVT prophylaxis-SCD CODE STATUS; full code
--- NOTE | 2023-07-29 23:38 | P.PN ---
Subjective Progress Note Date: 07/29/23 62-year-old female who apparently recently during her pelvic exam by her PCP noticed to have a vaginal cyst concerning for infected cyst and the patient has been treated with a 2-week course of oral Cipro and Flagyl the patient completed on 07/13/2023 about a week later patient started having di arrhea and the patient diarrhea continue to get worse patient mention she have multiple episodes of loose stools per day which is watery denies having any blood or mucus in the stool has been complaining of crampy lower abdominal pain which is moderate to severe intensity did have some nausea but no vomiting and decreased oral intake patient denies high-grade fever and no fever have recorded by presentation to the hospital patient was not tachycardic hypotensive or hypoxic patient did have white count of 7.4 creatinine 0.60 liver exams are normal patient did have a stool for C. difficile done by her PCP which came back positive and the patient was advised to go to the hospital for admission IV fluid and antibiotic therapy patient was started on oral vancomycin Medical completed in the diffuse wheezes and 0.4, hemoglobin of 14.3, sodium 139, potassium 2.4, BUN/creatinine of 11/0.6 and platelet count of 109 Objective - Vital Signs Vital signs: Vital Signs Temp 98.7 F 07/29/23 07:00 Pulse 59 L 07/29/23 07:00 Resp 14 07/29/23 07:00 BP 125/71 07/29/23 07:00 Pulse Ox 99 07/29/23 07:00 FiO2 Intake & Output 07/28/23 07/29/23 07/29/23 18:59 06:59 18:59 Weight 76.204 kg Other: # Voids 1 # Bowel Movements 2 - Exam GENERAL: The patient is alert and oriented x3, not in any acute distress. Well developed, well nourished. HEENT: Pupils are round and equally reacting to light. EOMI. No scleral icterus. No conjunctival pallor. Normocephalic, atraumatic. No pharyngeal erythema. No thyromegaly. CARDIOVASCULAR: S1 and S2 present. No murmurs, rubs, or gallops. PULMONARY: Chest is clear to auscultation, no wheezing or crackles. ABDOMEN: Soft, nontender, nondistended, normoactive bowel sounds. No palpable organomegaly. MUSCULOSKELETAL: No joint swelling or deformity. EXTREMITIES: No cyanosis, clubbing, or pedal edema. NEUROLOGICAL: Gross neurological examination did not reveal any focal deficits. SKIN: No rashes. - Labs CBC & Chem 7: 07/29/23 03:49 07/29/23 03:49 Labs: Abnormal Lab Results - Last 24 Hours (Table) 07/29/23 07/29/23 Range/Units 03:49 03:49 RBC 3.82 L (4.10-5.20) X 10*6/uL Hgb 11.9 L (12.0-15.0) g/dL Hct 35.8 L (37.2-46.3) % MPV 12.8 H (9.5-12.2) FL BUN 7.6 L (9.0-27.0) mg/dL Assessment and Plan Assessment: 1. Intractable diarrhea secondary to C. diff colitis --patient has been recently exposed to antibiotic in the form of oral Cipro and Flagyl for vaginal cyst now with intractable diarrhea secondary to C. difficile colitis - Patient has in place on oral vancomycin 125 mg every 6 hours -- Consult ID for further recommendations 2. Hypokalemia; documented in ED; monitor electrolytes and supplement as needed 3. Hyperlipidemia; Crestor 5 mg daily 4. Refill ALLERGIES; continue with xyzal 5 mg daily DVT prophylaxis-SCD CODE STATUS; full code
[2023-07-30] MEDS: SODIUM CHLORIDE 0.9% 1,000 ML IV SCH (05:14)
[2023-07-30] MEDS: PANTOPRAZOLE 40 MG/10 ML VIAL IV SCH (08:54)
[2023-07-30] MEDS: VANCOMYCIN 125 MG CAPSULE PO SCH ×2 (08:54→13:25)
[2023-07-30 10:03] LABS: Basophils # (A) 0.03 X 10*3/uL (0.00-0.10); Basophils % (A) 0.8 %; Eosinophils # (A) 0.07 X 10*3/uL (0.04-0.35); Eosinophils % (A) 1.9 %; HCT 35.8 % (37.2-46.3); HGB 12.1 g/dL (12.0-15.0); Lymphocytes % (A) 30.2 %; MCH 31.3 pg (27.0-32.0); MCHC 33.8 g/dL (32.0-37.0); MCV 92.5 FL (80.0-97.0); Mean Platelet Volume 12.1 FL (9.5-12.2); Monocytes # (A) 0.47 X 10*3/uL (0.20-1.00); Monocytes % (A) 12.9 %; NRBC Per 100 WBC 0 X 10*3/uL (0.00-0.01); Neutrophils # (A) 1.95 X 10*3/uL (1.80-7.70); Neutrophils % (A) 53.7 %; Platelet Count 226 X 10*3/uL (140-440); RBC 3.87 X 10*6/uL (4.10-5.20); WBC 3.64 X 10*3/uL (4.50-10.00)
[2023-07-30 10:20] LABS: BUN/Creat Ratio 11.14 Ratio (12.00-20.00); Blood Urea Nitrogen 7.8 mg/dL (9.0-27.0); Chloride 108 mmol/L (96-109); Glucose 99 mg/dL (70-110); Potassium 4.1 mmol/L (3.5-5.5); Sodium 142 mmol/L (135-145)
[2023-07-30 10:21] LABS: Carbon Dioxide 25.3 mmol/L (21.6-31.8)
[2023-07-30 10:59] VITALS: BP 123/68; PULSE 50; RESP 16; TEMP 98.2
--- NOTE | 2023-08-04 22:12 | P.PN ---
Subjective Progress Note Date: 07/29/23 Principal diagnosis: Reason for follow-up is C. difficile colitis Patient is a 62-year-old female recently exposed to antibiotics for infected vaginal cyst subsequently developing significant diarrhea for the patient did have a stool for C. difficile and came back positive admitted to hospital for further management. On today's evaluation that is 07/29/2023 patient denies having any fever or any chills, patient is breathing comfortably on room air, patient denies having any chest pain shortness of breath or cough no nausea no vomiting no abdominal pain and the patient diarrhea has slowed on The patient white count is 4.54, creatinine 0.6 Objective - Vital Signs Vital signs: Vital Signs Temp 98.7 F 07/29/23 07:00 Pulse 59 L 07/29/23 07:00 Resp 14 07/29/23 07:00 BP 125/71 07/29/23 07:00 Pulse Ox 99 07/29/23 07:00 FiO2 Intake & Output 07/28/23 07/29/23 07/29/23 18:59 06:59 18:59 Weight 76.204 kg Other: # Voids 1 # Bowel Movements 2 - Exam GENERAL DESCRIPTION: Middle-age female lying in bed in no distress RESPIRATORY SYSTEM: Unlabored breathing , decreased breath sounds at bases HEART: S1 S2 regular rate and rhythm , ABDOMEN: Soft , no tenderness EXTREMITIES: No edema feet - Labs CBC & Chem 7: 07/30/23 06:02 07/30/23 06:02 Labs: Abnormal Lab Results - Last 24 Hours (Table) 07/28/23 07/28/23 Range/Units 08:49 08:49 Lymphocytes # 0.6 L (1.0-4.8) k/uL Potassium 3.4 L (3.5-5.1) mmol/L Glucose 109 H (74-99) mg/dL Assessment and Plan (1) C. difficile colitis Status: Acute Code(s): A04.72 - ENTEROCOLITIS D/T CLOSTRIDIUM DIFFICILE, NOT SPCF RECUR SNOMED Code(s): 000569663 Plan: 1patient was in the hospital with intractable diarrhea and this patient has been recently exposed to antibiotic in the form of oral Cipro and Flagyl for vaginal cyst now with intractable diarrhea secondary to C. difficile colitis 2-patient did have some clinical improvement and will continue vancomycin 125 mg p.o. every 6 hours 3-advised to increase her probiotic and yogurt intake Dictation was produced using [employer] dictation software. please excuse any grammatical, word or spelling errors. Time with Patient: Less than 30
--- NOTE | 2023-08-04 22:13 | P.PN ---
Subjective Progress Note Date: 07/30/23 Principal diagnosis: Reason for follow-up is C. difficile colitis Patient is a 62-year-old female recently exposed to antibiotics for infected vaginal cyst subsequently developing significant diarrhea for the patient did have a stool for C. difficile and came back positive admitted to hospital for further management. On today's evaluation that is 07/30/2023 patient remains to be afebrile, patient is breathing comfortably on room air without need for supplemental oxygen, patient denies having any chest pain shortness of breath or cough no nausea no vomiting no abdominal pain and the patient diarrhea has slowed down and is slightly forming up The patient white count is 3.64, creatinine 0.7 Objective - Vital Signs Vital signs: Vital Signs Temp 98.2 F 07/30/23 07:00 Pulse 50 L 07/30/23 07:00 Resp 16 07/30/23 07:00 BP 123/68 07/30/23 07:00 Pulse Ox 100 07/30/23 07:00 FiO2 Intake & Output 07/29/23 07/30/23 07/30/23 18:59 06:59 18:59 Intake Total 240 Balance 240 Intake: Oral 240 Other: # Voids 4 2 1 # Bowel Movements 0 1 1 - Exam GENERAL DESCRIPTION: Middle-age female lying in bed in no distress RESPIRATORY SYSTEM: Unlabored breathing , decreased breath sounds at bases HEART: S1 S2 regular rate and rhythm , ABDOMEN: Soft , no tenderness EXTREMITIES: No edema feet - Labs CBC & Chem 7: 07/30/23 06:02 07/30/23 06:02 Labs: Abnormal Lab Results - Last 24 Hours (Table) 07/30/23 07/30/23 Range/Units 06:02 06:02 WBC 3.64 L (4.50-10.00) X 10*3/uL RBC 3.87 L (4.10-5.20) X 10*6/uL Hct 35.8 L (37.2-46.3) % BUN 7.8 L (9.0-27.0) mg/dL BUN/Creatinine Ratio 11.14 L (12.00-20.00) Ratio Assessment and Plan (1) C. difficile colitis Status: Acute Code(s): A04.72 - ENTEROCOLITIS D/T CLOSTRIDIUM DIFFICILE, NOT SPCF RECUR SNOMED Code(s): 458264989 Plan: 1patient was in the hospital with intractable diarrhea and this patient has been recently exposed to antibiotic in the form of oral Cipro and Flagyl for vaginal cyst now with intractable diarrhea secondary to C. difficile colitis 2--patient advised to increase her probiotic and yogurt intake 3-patient seem to have shown clinical improvement and has been insisting on going home prescription for oral vancomycin sent to the pharmacy and close outpatient follow-up Dictation was produced using [employer] dictation software. please excuse any grammatical, word or spelling errors. Time with Patient: Less than 30
== END 2023-07-30 15:35 | disposition home or self-care (01) ==
LOC: EC 08:07 → 6NMEDSUR 10:20
PROVIDERS: ADMIT Internal Medicine; ATTEND Internal Medicine
DX: A04.72 Enterocolitis due to Clostridium difficile, not specified as recurrent (principal); N89.8 Other specified noninflammatory disorders of vagina; E87.6 Hypokalemia; E78.5 Hyperlipidemia, unspecified; E86.0 Dehydration; Z85.828 Personal history of other malignant neoplasm of skin; Z90.710 Acquired absence of both cervix and uterus; Z87.442 Personal history of urinary calculi; Z88.8 Allergy status to other drugs, medicaments and biological substances; Z88.2 Allergy status to sulfonamides; Z88.1 Allergy status to other antibiotic agents; Z88.5 Allergy status to narcotic agent
CPT/HCPCS: 96361 ×2; 96374; 99281; 36415; 80053; 80048 ×2; 83605; 83690; 83735; 85025 ×3; G0378 ×3; J2405; 96360

== ENCOUNTER → 2023-10-13 | Outpatient (CLI) | payer OTHER | END | disposition home or self-care (01) | LOC: LABWHC1 06:55 | PROVIDERS: ATTEND Family Medicine | DX: R19.7 Diarrhea, unspecified (principal) | CPT/HCPCS: 87324 ==

== ENCOUNTER → 2024-07-25 | Outpatient (CLI) | payer OTHER ==
--- NOTE | 2024-07-26 18:16 | BD ---
EXAMINATION TYPE: Axial Bone Density DATE OF EXAM: 07/25/2024 CLINICAL HISTORY: 63 years old Female. ICD-10 CODE: M85.9 DISORDER OF BONE , Additional History: Height: 66 Weight: 161.7 FRAX RISK QUESTIONS: Alcohol (3 or more units per day): no Family History (Parent hip fracture): no Glucocorticoids (More than 3mos): no (Ex: prednisone, prednisolone, methylprednisolone, dexamethasone, and hydrocortisone). History of Fracture in Adulthood: no Secondary Osteoporosis: 1. Type 1 Diabetes: no 2. Hyperthyroidism: no 3. Menopause before 45: no 4. Malnutrition: no 5. Chronic liver disease: no Rheumatoid Arthritis: no Current Tobacco Use: no RISK FACTORS HISTORY OF: Hip Fracture (Right/Left): no Spine Fracture: no History of Wrist Fracture: no Surgery to Spine/Hip(right/left)/Wrist (right/left): no MEDICATIONS: Thyroid Medications: no Osteoporosis Medications: no EXAM MEASUREMENTS: Bone mineral densitometry was performed using the Echograph System. Bone mineral density as measured about the Lumbar spine is: ----- L1-L4(G/cm2): 0.971 T Score Values are as follows: ----- L1: -1.4 ----- L2: -2.3 ----- L3: -2.1 ----- L4: -1.3 ----- L1-L4: -1.7 Z Score Values are as follows: ----- L1: -0.1 ----- L2: -1.0 ----- L3: -0.8 ----- L4: 0.0 ----- L1-L4: -0.4 Baseline Study Bone mineral density about the R hip (g/cm2): 0.855 Bone mineral density about the L hip (g/cm2): 0.894 T Score values are as follows: -----R Neck: -1.2 -----L Neck: -1.1 -----R Total: -1.2 -----L Total: -0.9 Z Score values are as follows: -----R Neck: 0.1 -----L Neck: 0.2 -----R Total: -0.2 -----L Total: 0.1 Baseline Study FRAX%s: The graph provided illustrates a 8.3% chance for a major osteoporotic fx and a 0.7% chance fo r the hips probability for fx in 10 years time. IMPRESSION: Osteopenia (T Score between -2.5 and -1). There is slightly increased risk of fracture and the patient may be considered for treatment. Re-Screen 2-5 years. NOTE: T-SCORE=SD OF THE YOUNG ADULT MEAN. [facility], , 07/26/2024 6:13 PM
--- NOTE | 2024-07-29 08:09 | MM ---
Reason for Exam: Screening (asymptomatic). Last mammogram was performed 1 year(s) and 10 month(s) ago. Patient History: Menarche at age 11. First Full-Term at age 22. Hysterectomy at age 40. Postmenopausal. Other cancer, age 39. Risk Values: Africa 5 year model risk: 1.4%. NCI Lifetime model risk: 5.8%. Prior Study Comparison: 09/04/2020 Bilateral Screening Mammogram, [facility]. 09/17/2021 Bilateral Screening Mammogram, [facility]. 10/10/2022 Bilateral MG screening mammo w CAD, [facility]. Tissue Density: The breasts are heterogeneously dense, which may obscure small masses. Findings: Analyzed By CAD. Right breast: There is no suspicious group of microcalcifications or new suspicious mass. Left breast: There is no suspicious group of microcalcifications or new suspicious mass. Overall Assessment: Negative, BI-RAD 1 Management: Screening Mammogram of both breasts in [address] [facility] will attempt to contact patient to return for supplemental views and ultrasound if indicated. Patient should continue monthly self-breast exams. A clinical breast exam by your physician is recommended on an annual basis. This exam should not preclude additional follow-up of suspicious palpable abnormalities. Note on Africa scores and lifetime risk: 1. A Africa score greater than 3% is considered moderate risk. If this is the case, consider specialist referral to assess eligibility for a risk reducing agent. 2. If overall lifetime risk for the development of breast cancer is 20% or higher, the patient may qualify for future screening with alternating mammogram and breast MRI. [facility], , 07/29/2024 8:06 AM. Electronically signed and approved by: Yeyo Cabrera DO
== END | disposition home or self-care (01) ==
LOC: RADMAMWWP 12:39
PROVIDERS: ATTEND Family Medicine
DX: Z12.31 Encounter for screening mammogram for malignant neoplasm of breast (principal); Z78.0 Asymptomatic menopausal state; R92.333 Mammographic heterogeneous density, bilateral breasts; M85.89 Other specified disorders of bone density and structure, multiple sites
CPT/HCPCS: 77063; 77067; 77080